=== PATIENT | male | born 1985 | race Caucasian/White ===

== ENCOUNTER 2017-08-15 11:29 | Emergency (ER) | payer BC ==
[2017-08-15 11:34] VITALS: BP 142/80
--- NOTE | 2017-08-15 12:21 | ER Document Report ---
HPI - HPI Patient complains to provider of: Sore throat Pain Level: 2 Context: Patient is a 32-year-old healthy male complaining of mild sore throat. Patient' s son tested positive for strep throat this morning. Denies fever, cough, postnasal drip, headache, chest pain, shortness of breath Associated Symptoms: None Exacerbated by: Denies Relieved by: Denies - EENT EENT: REPORTS: Sore Throat Past Medical History - General Information source: Patient - Social History Smoking Status: Never Smoker Chew tobacco use (# tins/day): No Frequency of alcohol use: None Drug Abuse: None Lives with: Family Family History: Reviewed & Not Pertinent Patient has suicidal ideation: No Patient has homicidal ideation: No - Medical History Medical History: Negative Renal/ Medical History: Denies: Hx Peritoneal Dialysis Vertical Provider Document - CONSTITUTIONAL Agree With Documented VS: Yes Exam Limitations: No Limitations - INFECTION CONTROL TRAVEL OUTSIDE OF THE [place] IN LAST 30 DAYS: No - HEENT HEENT: Atraumatic, PERRLA. negative: Pharyngeal Tenderness, Pharyngeal Erythema - NECK Neck: Normal Inspection, Supple - RESPIRATORY Respiratory: Breath Sounds Normal, No Respiratory Distress - CARDIOVASCULAR Cardiovascular: Regular Rate, Regular Rhythm - NEURO Level of Consciousness: Awake, Alert, Appropriate - DERM Integumentary: Warm, Dry Course - Re-evaluation Re-evalutation: 08/15/17 13:17 Rapid strep is negative. Results reviewed with patient. Throat culture will be added. Results will be called to the patient. Home care, primary care follow-up, ED return precautions reviewed. Patient stable for discharge and agreeable with plan - Vital Signs Vital signs: Temp Pulse Resp BP Pulse Ox 98.7 F 91 16 142/80 H 97 08/15/17 11:33 08/15/17 11:33 08/15/17 11:33 08/15/17 11:33 08/15/17 11:33 Discharge - Discharge Clinical Impression: Strep throat exposure Condition: Stable Disposition: HOME, SELF-CARE Instructions: Sore Throat ([facility]) Additional Instructions: Your rapid strep test was negative A throat culture is pending. We will call those results to you with any further treatment Follow-up with your primary care for any worsening of symptoms
== END 2017-08-15 13:22 | disposition home or self-care (01) ==
LOC: ER 11:29
DX: J02.9 Acute pharyngitis, unspecified (principal); Z20.818 Contact with and (suspected) exposure to other bacterial communicable diseases
CPT/HCPCS: 87070; 87880; 99283